=== PATIENT | female | born 1945 | race Caucasian/White ===

== ENCOUNTER → 2017-12-27 | Outpatient (CLI) | payer MEDICARE, OTHER ==
[~2017-12-27] MED LIST: B-12 COMPL1000 MCG/1 IM; BACTRIM DS TAB1 EACH PO; BYETTA PEN 51 PENIN1 SUBQ; CELEXA40 MG PO; GYNE-LOTRIMIN-745 GM VAG; JARDIANCE25 MG PO; LANTUS SUBQ; LISINOPRIL10 MG PO; METFORMIN HCL500 MG PO; OMEGA 3 1,0001 EACH PO; SINGULAIR 10 MG10 M1 PO; TICALAST NASAL1 EACH NASAL; TRAZODONE HCL50 MG PO; UNICOMPLEX M TA1 TA1 PO; VITAMIN D2000 UNIT PO; VITAMIN E400 UNIT PO
== END ==
LOC: M.ULTRA 12-20 17:17
DX: M85.89 Other specified disorders of bone density and structure, multiple sites (principal); E04.2 Nontoxic multinodular goiter; Z78.0 Asymptomatic menopausal state

== ENCOUNTER 2017-12-30 15:10 | Emergency (ER) | payer MEDICARE, OTHER ==
[~2017-12-30] VITALS: Ht 149.9 cm; Wt 93.4 kg
[2017-12-30 15:20] VITALS: BP 119/91
[2017-12-30] MEDS ORDERED: TICALAST NASAL1 EACH NASAL (15:23)
[2017-12-30] MEDS ORDERED: CELEXA40 MG PO (15:24)
[2017-12-30] MEDS ORDERED: GYNE-LOTRIMIN-745 GM VAG (15:24)
[2017-12-30] MEDS ORDERED: BYETTA PEN 51 PENIN1 SUBQ (15:25)
[2017-12-30] MEDS ORDERED: LANTUS SUBQ (15:25)
[2017-12-30] MEDS ORDERED: B-12 COMPL1000 MCG/1 IM (15:25)
[2017-12-30] MEDS ORDERED: METFORMIN HCL500 MG PO (15:26)
[2017-12-30] MEDS ORDERED: JARDIANCE25 MG PO (15:26)
[2017-12-30] MEDS ORDERED: LISINOPRIL10 MG PO (15:26)
[2017-12-30] MEDS ORDERED: SINGULAIR 10 MG10 M1 PO (15:27)
[2017-12-30] MEDS ORDERED: UNICOMPLEX M TA1 TA1 PO (15:27)
[2017-12-30] MEDS ORDERED: TRAZODONE HCL50 MG PO (15:27)
[2017-12-30] MEDS ORDERED: OMEGA 3 1,0001 EACH PO (15:27)
[2017-12-30] MEDS ORDERED: VITAMIN D2000 UNIT PO (15:28)
[2017-12-30] MEDS ORDERED: VITAMIN E400 UNIT PO (15:28)
[2017-12-30] MEDS ORDERED: BACTRIM DS TAB1 EACH PO (15:32)
== END 2017-12-30 16:10 | disposition home or self-care (01) ==
LOC: M.ERS 15:10
DX: L02.416 Cutaneous abscess of left lower limb (principal); I10 Essential (primary) hypertension; E11.9 Type 2 diabetes mellitus without complications; F32.9 Major depressive disorder, single episode, unspecified; K21.9 Gastro-esophageal reflux disease without esophagitis; J45.909 Unspecified asthma, uncomplicated; M19.90 Unspecified osteoarthritis, unspecified site; E78.5 Hyperlipidemia, unspecified

== ENCOUNTER → 2018-01-04 | Outpatient (CLI) | payer MEDICARE, OTHER | LOC: M.WC 09:00 | DX: E11.622 Type 2 diabetes mellitus with other skin ulcer (principal); L98.491 Non-pressure chronic ulcer of skin of other sites limited to breakdown of skin; L02.416 Cutaneous abscess of left lower limb; E07.89 Other specified disorders of thyroid; E78.5 Hyperlipidemia, unspecified; I10 Essential (primary) hypertension; J45.909 Unspecified asthma, uncomplicated; K21.9 Gastro-esophageal reflux disease without esophagitis; M06.9 Rheumatoid arthritis, unspecified; M19.90 Unspecified osteoarthritis, unspecified site; F41.9 Anxiety disorder, unspecified; F32.9 Major depressive disorder, single episode, unspecified; Z79.4 Long term (current) use of insulin ==

== ENCOUNTER → 2018-01-06 | Outpatient (CLI) | payer MEDICARE, OTHER | LOC: M.WC 05:58 | DX: E11.622 Type 2 diabetes mellitus with other skin ulcer (principal); L97.121 Non-pressure chronic ulcer of left thigh limited to breakdown of skin; E07.9 Disorder of thyroid, unspecified; E78.5 Hyperlipidemia, unspecified; E66.9 Obesity, unspecified; I10 Essential (primary) hypertension; J45.909 Unspecified asthma, uncomplicated; K21.9 Gastro-esophageal reflux disease without esophagitis; M19.90 Unspecified osteoarthritis, unspecified site; M06.9 Rheumatoid arthritis, unspecified; F41.9 Anxiety disorder, unspecified; F32.9 Major depressive disorder, single episode, unspecified; Z68.41 Body mass index [BMI] 40.0-44.9, adult ==

== ENCOUNTER → 2018-01-11 | Outpatient (CLI) | payer MEDICARE, OTHER | LOC: M.WC 04:54 | DX: E11.622 Type 2 diabetes mellitus with other skin ulcer (principal); L97.121 Non-pressure chronic ulcer of left thigh limited to breakdown of skin; E07.89 Other specified disorders of thyroid; E78.5 Hyperlipidemia, unspecified; I10 Essential (primary) hypertension; K21.9 Gastro-esophageal reflux disease without esophagitis; J45.909 Unspecified asthma, uncomplicated; M06.9 Rheumatoid arthritis, unspecified; M19.90 Unspecified osteoarthritis, unspecified site; F32.9 Major depressive disorder, single episode, unspecified; F41.9 Anxiety disorder, unspecified ==

== ENCOUNTER → 2018-01-18 | Outpatient (CLI) | payer MEDICARE, OTHER | LOC: M.WC 04:52 | DX: E11.622 Type 2 diabetes mellitus with other skin ulcer (principal); L97.121 Non-pressure chronic ulcer of left thigh limited to breakdown of skin; E07.89 Other specified disorders of thyroid; E78.5 Hyperlipidemia, unspecified; I10 Essential (primary) hypertension; J45.909 Unspecified asthma, uncomplicated; K21.9 Gastro-esophageal reflux disease without esophagitis; M19.90 Unspecified osteoarthritis, unspecified site; M06.9 Rheumatoid arthritis, unspecified; F41.9 Anxiety disorder, unspecified; F32.9 Major depressive disorder, single episode, unspecified ==

== ENCOUNTER → 2018-02-01 | Outpatient (CLI) | payer MEDICARE, OTHER | LOC: M.WC 01-25 08:17 | DX: E11.622 Type 2 diabetes mellitus with other skin ulcer (principal); L97.121 Non-pressure chronic ulcer of left thigh limited to breakdown of skin; E78.5 Hyperlipidemia, unspecified; E07.89 Other specified disorders of thyroid; I10 Essential (primary) hypertension; J45.909 Unspecified asthma, uncomplicated; K21.9 Gastro-esophageal reflux disease without esophagitis; M06.9 Rheumatoid arthritis, unspecified; F32.9 Major depressive disorder, single episode, unspecified; F41.9 Anxiety disorder, unspecified ==

== ENCOUNTER → 2018-02-08 | Outpatient (CLI) | payer MEDICARE, OTHER | LOC: M.WC 04:58 | DX: E11.622 Type 2 diabetes mellitus with other skin ulcer (principal); L97.121 Non-pressure chronic ulcer of left thigh limited to breakdown of skin; E78.5 Hyperlipidemia, unspecified; E07.89 Other specified disorders of thyroid; I10 Essential (primary) hypertension; J45.909 Unspecified asthma, uncomplicated; K21.9 Gastro-esophageal reflux disease without esophagitis; M19.90 Unspecified osteoarthritis, unspecified site; M06.9 Rheumatoid arthritis, unspecified; F41.9 Anxiety disorder, unspecified; F32.9 Major depressive disorder, single episode, unspecified ==

== ENCOUNTER → 2018-02-22 | Outpatient (CLI) | payer MEDICARE, OTHER | LOC: M.WC 02-15 10:30 | DX: E11.622 Type 2 diabetes mellitus with other skin ulcer (principal); L97.828 Non-pressure chronic ulcer of other part of left lower leg with other specified severity; L02.416 Cutaneous abscess of left lower limb; E07.89 Other specified disorders of thyroid; E78.5 Hyperlipidemia, unspecified; I10 Essential (primary) hypertension; J45.909 Unspecified asthma, uncomplicated; K21.9 Gastro-esophageal reflux disease without esophagitis; M06.9 Rheumatoid arthritis, unspecified; F32.9 Major depressive disorder, single episode, unspecified; F41.9 Anxiety disorder, unspecified ==

== ENCOUNTER → 2018-04-06 | Outpatient (CLI) | payer MEDICARE, OTHER | LOC: M.CT 06:52 | DX: N85.8 Other specified noninflammatory disorders of uterus (principal); R14.0 Abdominal distension (gaseous) ==

== ENCOUNTER → 2018-11-03 | Outpatient (CLI) | payer MEDICARE, OTHER | LOC: M.RAD 13:49 | DX: J98.4 Other disorders of lung (principal); I10 Essential (primary) hypertension ==

== ENCOUNTER → 2019-03-14 | Outpatient (CLI) | payer MEDICARE, OTHER | LOC: M.WC 07:42 | DX: E11.622 Type 2 diabetes mellitus with other skin ulcer (principal); L89.152 Pressure ulcer of sacral region, stage 2; L98.491 Non-pressure chronic ulcer of skin of other sites limited to breakdown of skin; L02.416 Cutaneous abscess of left lower limb; L02.31 Cutaneous abscess of buttock; E07.89 Other specified disorders of thyroid; E78.5 Hyperlipidemia, unspecified; I10 Essential (primary) hypertension; J45.909 Unspecified asthma, uncomplicated; K21.9 Gastro-esophageal reflux disease without esophagitis; M06.9 Rheumatoid arthritis, unspecified; F41.9 Anxiety disorder, unspecified; F32.9 Major depressive disorder, single episode, unspecified; Z90.49 Acquired absence of other specified parts of digestive tract ==

== ENCOUNTER → 2019-03-17 | Outpatient (CLI) | payer MEDICARE, OTHER | LOC: M.WC 08:00 | DX: E11.622 Type 2 diabetes mellitus with other skin ulcer (principal); L89.152 Pressure ulcer of sacral region, stage 2; L98.491 Non-pressure chronic ulcer of skin of other sites limited to breakdown of skin; L02.415 Cutaneous abscess of right lower limb; L02.416 Cutaneous abscess of left lower limb; E07.89 Other specified disorders of thyroid; E78.5 Hyperlipidemia, unspecified; I10 Essential (primary) hypertension; J45.909 Unspecified asthma, uncomplicated; K21.9 Gastro-esophageal reflux disease without esophagitis; M06.9 Rheumatoid arthritis, unspecified; F32.9 Major depressive disorder, single episode, unspecified; F41.9 Anxiety disorder, unspecified; Z90.49 Acquired absence of other specified parts of digestive tract ==

== ENCOUNTER → 2019-03-21 | Outpatient (CLI) | payer MEDICARE, OTHER | LOC: M.WC 04:33 | DX: L02.415 Cutaneous abscess of right lower limb (principal); L02.416 Cutaneous abscess of left lower limb; L02.31 Cutaneous abscess of buttock; E11.628 Type 2 diabetes mellitus with other skin complications; B95.62 Methicillin resistant Staphylococcus aureus infection as the cause of diseases classified elsewhere; M06.9 Rheumatoid arthritis, unspecified; I10 Essential (primary) hypertension; K21.9 Gastro-esophageal reflux disease without esophagitis; J45.909 Unspecified asthma, uncomplicated; M19.90 Unspecified osteoarthritis, unspecified site; E78.5 Hyperlipidemia, unspecified; M10.9 Gout, unspecified; F32.9 Major depressive disorder, single episode, unspecified; F41.9 Anxiety disorder, unspecified; Z79.4 Long term (current) use of insulin ==

== ENCOUNTER → 2019-03-28 | Outpatient (CLI) | payer MEDICARE, OTHER | LOC: M.WC 09:00 | DX: E11.622 Type 2 diabetes mellitus with other skin ulcer (principal); L98.491 Non-pressure chronic ulcer of skin of other sites limited to breakdown of skin; L02.31 Cutaneous abscess of buttock; E07.89 Other specified disorders of thyroid; E78.5 Hyperlipidemia, unspecified; I10 Essential (primary) hypertension; J45.909 Unspecified asthma, uncomplicated; K21.9 Gastro-esophageal reflux disease without esophagitis; M06.9 Rheumatoid arthritis, unspecified; F41.9 Anxiety disorder, unspecified; F32.9 Major depressive disorder, single episode, unspecified ==

== ENCOUNTER → 2019-04-04 | Outpatient (CLI) | payer MEDICARE, OTHER | LOC: M.WC 02:29 | DX: E11.622 Type 2 diabetes mellitus with other skin ulcer (principal); L02.31 Cutaneous abscess of buttock; L98.491 Non-pressure chronic ulcer of skin of other sites limited to breakdown of skin; E07.89 Other specified disorders of thyroid; E78.5 Hyperlipidemia, unspecified; I10 Essential (primary) hypertension; J45.909 Unspecified asthma, uncomplicated; M06.9 Rheumatoid arthritis, unspecified; K21.9 Gastro-esophageal reflux disease without esophagitis; F41.9 Anxiety disorder, unspecified; F32.9 Major depressive disorder, single episode, unspecified ==

== ENCOUNTER → 2019-06-06 | Outpatient (CLI) | payer MEDICARE, OTHER | LOC: M.ULTRA 09:43 | DX: R22.41 Localized swelling, mass and lump, right lower limb (principal); E04.1 Nontoxic single thyroid nodule ==

== ENCOUNTER 2020-07-13 16:50 | Emergency (ER) | payer MEDICARE, OTHER ==
[~2020-07-13] VITALS: Ht 162.6 cm; Wt 97.1 kg
--- NOTE | 2020-07-15 11:03 | EKG ---
[place] [address] ELECTROCARDIOGRAM REPORT Name: MASON RAY Room: [facility]#: [id number] Admission: 07/13/20 Attend Phys: Discharge: 07/13/20 Date of : 49 Date of Service: 07/13/20 1706 Report #: [id number] THIS REPORT FOR: //name// [facility] ED Test Date: 2020-07-13 Test Time: 17:06:05 Pat Name: MASON RAY Department: Room: Gender: F [employer] Shift Manager: [facility] : 1945 Requested By: Hayden Carranza Order Number: [id number] MD: Eliazar Aj Measurements Intervals [place] Rate: 59 P: 0 GA: 120 QRS: 175 QRSD: 149 T: 30 QT: 475 QTc: 471 Interpretive Statements junctional rhythm Right bundle branch block Probable inferior infarct, recent Anterolateral infarct, age indeterminate No previous ECG available for comparison Electronically Signed On 07-15-2020 11:03:31 CDT by Eliazar Aj [email or web address] <ELECTRONICALLY SIGNED> By: Eliazar Aj MD, [facility] 07/15/20 1103 1706 1706 Eliazar Aj MD, [facility] /EPI
== END 2020-07-13 17:33 ==
LOC: M.ERS 16:50
DX: I46.9 Cardiac arrest, cause unspecified (principal); I21.3 ST elevation (STEMI) myocardial infarction of unspecified site; I21.9 Acute myocardial infarction, unspecified